=== PATIENT | male | born 1960 | race Caucasian/White ===

== ENCOUNTER → 2019-03-27 | Outpatient (CLI) | payer OTHER ==
[2019-03-27 15:44] LABS: HCT 46.7 % (39.0-53.0); HGB 15.9 gm/dL (13.0-17.5); MCH 30.7 pg (25.0-35.0); MCHC 34.2 g/dL (31.0-37.0); Mean Platelet Volume 7.1; Platelet Count 296 k/uL (150-450); RBC 5.19 m/uL (4.30-5.90); RDW 12.5 % (11.5-15.5); WBC 10.4 k/uL (3.8-10.6)
[2019-03-27 16:01] LABS: African American GFR (CKD) >90 (>60 ml/min/1.73 sqM); Blood Urea Nitrogen 13 mg/dL (9-20); Carbon Dioxide 29 mmol/L (22-30); Chloride 102 mmol/L (98-107); Potassium 4.1 mmol/L (3.5-5.1)
[2019-03-27 16:51] LABS: Anion Gap 9 mmol/L; Sodium 140 mmol/L (137-145)
== END | disposition home or self-care (01) ==
LOC: LABPAT 14:54
PROVIDERS: ATTEND Internal Medicine Cardiovascular Disease
DX: Z01.812 Encounter for preprocedural laboratory examination (principal); I25.5 Ischemic cardiomyopathy
CPT/HCPCS: 80051; 82565; 84520; 85027

== ENCOUNTER → 2021-12-02 | Outpatient (CLI) | payer OTHER ==
--- NOTE | 2021-12-02 10:15 | XR ---
EXAMINATION TYPE: XR lumbar spine 3 views DATE OF EXAM: 12/02/2021 Comparison: None Clinical History: 61-year-old male M46.1 SACROILIITIS, NOT ELSEWHERE CLASSIFIED Findings: A 1.1 cm density at the right mid abdomen could represent a renal stone or gallstone. Slight dextroco nvexed curvature mid lumbar spine. Small T12 ribs. Mild degenerative disc disease throughout with min imal disc space narrowing and mild endplate spondylosis. More moderate degenerative disc disease towa rds the left at L3-L4 due to the concavity. Vertebral body heights are preserved and alignment is ida ntained. Hypertrophic facet arthropathy mid to lower lumbar spine. At the scattered calcifications ab dominal aorta. There is suggestion of mild degenerative spurring at the SI joints. No significant subarticular scler osis or underlying erosions are seen. Impression: 1. Suggestion of mild degenerative spurring at the SI joints. No subarticular erosions or significant sclerosis is seen. 2. Mild multilevel degenerative disc disease. More moderate towards the left at L3-L4 secondary to a slight dextroconvex curvature. 3. Hypertrophic facet arthropathy mid to lower lumbar spine. 4. No vertebral compression collapse or malalignment. 5. A 1.1 cm calcification right mid abdomen could represent a renal calculus or gallstone.
== END | disposition home or self-care (01) ==
LOC: RADXRMAIN 09:08
PROVIDERS: ATTEND Physician Assistant Medical
DX: M51.36 Other intervertebral disc degeneration, lumbar region (principal); M47.816 Spondylosis without myelopathy or radiculopathy, lumbar region
CPT/HCPCS: 72100

== ENCOUNTER → 2021-12-02 | Outpatient (CLI) | payer OTHER ==
[2021-12-02 08:49] VITALS: BP 159/89; PULSE 74; RESP 16
--- NOTE | 2021-12-02 08:49 | P.PAINPG ---
PQRS Measure Charge Sheet Comment: HISTORY OF PRESENT ILLNESS: 61 yr old male as a referral from Dr. Baker presents today with severe and chronic LBP/ L Sacroiliitis secondary to DDD for evaluation. Pt states his pain level is currently 2/10 in intensity, constant, localized in the lower aspect of his lumbar spine where it meets his tailbone on the L side w radiation of sharp pain towards the L glutes and L inner thigh. Pain is provoked with sitting for periods of 30 min or more. Pain is alleviated with medications (Tylenol, Toradol), topicals, PT in 2005, home exercise regimen, repositioning and rest. PMH: HTN, Hyperlipidemia PSH: Cardiac Stents SH: Hx of tobacco use, No ETOH abuse, No illicit drug use FH: Non contributory All: See list Meds: See list REVIEW OF ORGAN SYSTEMS: CONSTITUTIONAL: No fevers or chills. No recent weight loss. NEUROLOGICAL: + numbness and tingling along the distal extremities. No seizure disorders or headaches. MUSCULOSKELETAL: + pain PSYCHIATRIC: Denies current depression or suicidal thoughts. Physical Examinations : Constitutional : Cooperative , not in acute distress . Neurologic : Cranial nerve II to XII intact. No focal neurological deficits. Psychiatric : alert & oriented x 3. Matching mood & appropriate affect. Judgment & insight intact. Musculoskeletal : Cervical Spine Motor strength in the deltoid and biceps: Normal right side. Normal Left side Motor strength biceps and the wrist extensors: Normal right side . Normal left side Motor strength in the triceps muscle: Normal right side. Normal left side Deep tendon reflexes: Normal at the biceps. Normal at Brachioradialis. Normal at triceps Vertebral body tenderness to deep palpation over Cervical facet loading test: positive b ilaterally Spurling test: positive bilaterally Neck distraction test: positive bilaterally Nataliia sign: positive bilaterally Lumbar spine Motor strength lower extremities ,thigh and legs 5/5 Right side , 5/5 Left side Deep tendon reflexes : Normal Knee Jerk. Normal Ankle Jerk Vertebral body tenderness over Lumbar facet Loading Test: positive Right / positive Left Range of motion of the lumbar spine Flexion 30 degrees, extension 10 degrees Straight Leg Raise test: Left/ Right positive at degree Doug test: positive right / positive left. Severe tenderness over the Sacroiliac joint on the Right / Left sides Gaenslen test: positive bilaterally Seated flexion test: positive bilaterally. Sacral spine : Severe tenderness over the Sacroiliac joint: right side / left side Range of motion: Flexion of the lumbar spine <60 degrees Range of motion: Extension of the lumbar spine <20 degrees Gaenslen's Test positive on L Doug test: positive right side / left side Thigh Thrust Test- L side + L Sacral Thrust Test Imaging: None on file Assessment/ Plan : L Sacroiliitis Recommendation of Lumbar x rays Re: M46.1 Recommendation of PT 3 times per week x 6 wks Dx M46.1. Pt may return to our clinic within 6 weeks for a re evaluation All questions answered. I have spent greater than 30 minutes on patient care today. Dr Booker was available by phone for the evaluation of this patient. The time was used to review the medical records including relevant urine studies and Prescription history (MAPs), review of the available imaging, evaluation and examination of the patient, coordination of care with the medical staff and if applicable referring physicians, as well as creation of the medical record Home Medications: Ambulatory Orders Atorvastatin [Lipitor] 20 mg PO DAILY 12/02/21 Metoprolol Succinate (ER) [Toprol Xl] 25 mg PO DAILY 12/02/21 lisinopriL [Prinivil] 10 mg PO DAILY 12/02/21 Controlled Substance Measures - Controlled Substance Measures Is patient prescribed a controlled substance at discharge?: No
== END ==
LOC: PNWHC3 08:04
PROVIDERS: ATTEND Specialist
DX: M54.16 Radiculopathy, lumbar region (principal); M46.1 Sacroiliitis, not elsewhere classified; I10 Essential (primary) hypertension; E78.5 Hyperlipidemia, unspecified
CPT/HCPCS: 99202

== ENCOUNTER → 2022-01-13 | Outpatient (CLI) | payer OTHER ==
[2022-01-13 08:24] VITALS: BP 145/78; PULSE 71; RESP 16; TEMP 98.6
--- NOTE | 2022-01-13 14:09 | P.PAINPG ---
PQRS Measure Charge Sheet Comment: A 61 yr old male with a history of severe and chronic low back pain secondary to lumbar degenerative disc diseases and lumbar spondylosis with facet arthropathy without myelopathy and Sacroiliitis presents today for L lower lumbar spine/ tailbone pain. Pain level is currently at 2/10 in intensity, constant, localized in the lower aspect of his lumbar spine, sharp in character when sitting w shooting towards BL hips, L>R. Pain is provoked as high as 7/10 w sitting for periods of 30 min or more. Pain is alleviated with chiropractic treatments in the past, kinesiology in the past, home stretching regimen, alternating heat & ice, hot epsom salt baths, medications (Tylenol OTC, Flexeril, Muscle Rub), repositioning and rest. Patient is currently on Tylenol OTC, Flexeril Patient denies any side effects of the medication(s), denies excessive drowsiness or sleepiness, denies suicidal ideation and reports that the current pain medication is helping to control the pain and improve activities of daily living. Patient denies any motor or sensory deficits. Patient denies any fever or night sweats, denies any change in the bowel movements or urination. Physical Examination: -Constitutional: Cooperative. Not in acute distress . - Neurologic: Cranial nerve II to XII intact. No focal neurological defi cits. - Psychatric: Alert & oriented x 3. Matching mood & appropriate affect. Judgment and insight intact. - Musculoskeletal: Cervical spine: Muscle bulk/ tone/ strength in the bilateral upper extremities normal Vertebral body tenderness to palpation over Spurling test positive Distraction test positive Facet loading test positive Thoracic spine Muscle bulk / tone/ strength in the bilateral paraspinal muscles normal Vertebral body tender to palpation over Facet loading test positive Lumbar spine: Motor bulk/ tone/ strength lower extremities , thigh and legs : 5/5 Deep tendon reflexes : Normal Knee Jerk. Normal Ankle Jerk . Vertebral body tenderness to palpation over L1, L2 Lumbar Facet Loading Test positive Straight Leg Raise: positive at 30 degrees right side/ left side Gaenslen's Test positive Sacral spine : Severe tenderness over the Sacroiliac joint: right side / left side Range of motion: Flexion of the lumbar spine <60 degrees Range of motion: Extension of the lumbar spine <20 degrees Gaenslen's Test positive on the L Doug test: positive right side / left side L Thigh Thrust Test Sacral Thrust Test +L Assessment and plan: Chronic low back pain secondary to lumbar degenerative disc disease , lumbar spondylosis with facet arthropathy without myelopathy, Sacroiliitis Recommendation of MRI without contrast of the lumbar spine re: M46.1 PT script renewed, 2-3 times per week x 6 wks re: M46.1. He may return to our office within 6 wks for a reevaluation. Risks, benefits of procedure discussed and pt verbalized understanding. Denies anticoagulant use or medical history of diabetes. All patient questions answered MAPS reviewed and it was appropriate. I have spent less than 30 minutes on patient care today. Dr Booker was available by phone for the evaluation of this patient. The time was used to review the medical records including relevant urine studies and Prescription history (MAPs), review of the available imaging, evaluation and examination of the patient, coordination of care with the medical staff and if applicable referring physicians, as well as creation of the medical record PQRS Narrative: Hx Alcohol Use (MH) No Home Medications: Ambulatory Orders Atorvastatin [Lipitor] 20 mg PO DAILY 12/02/21 Metoprolol Succinate (ER) [Toprol Xl] 25 mg PO DAILY 12/02/21 lisinopriL [Prinivil] 10 mg PO DAILY 12/02/21 Controlled Substance Measures - Controlled Substance Measures Is patient prescribed a controlled substance at discharge?: No
== END ==
LOC: PNWHC3 07:59
PROVIDERS: ATTEND Specialist
DX: M46.1 Sacroiliitis, not elsewhere classified (principal); M51.36 Other intervertebral disc degeneration, lumbar region; M47.816 Spondylosis without myelopathy or radiculopathy, lumbar region; G89.29 Other chronic pain; F17.200 Nicotine dependence, unspecified, uncomplicated
CPT/HCPCS: 99211

== ENCOUNTER → 2024-03-20 | Outpatient (CLI) | payer MEDICARE ==
[2024-03-20 07:59] LABS: African American GFR (CKD) >90 (>60 ml/min/1.73 sqM); Blood Urea Nitrogen 12 mg/dL (9-20); Non-African American GFR(CKD) 83 (>60 ml/min/1.73 sqM)
--- NOTE | 2024-03-20 13:37 | CT ---
EXAMINATION TYPE: CT ChestAbdPelvis w con DATE OF EXAM: 03/20/2024 9:11 AM COMPARISON: None. CLINICAL INDICATION: Male, 64 years old with history of Z72.0 TOBACCO USE R63.4 ABN WEIGHT LOSS, TECHNIQUE: CT imaging performed with sagittal coronal reformats. CT scan of the chest, abdomen and pe lvis is performed with Oral Contrast and with IV Contrast, patient injected with 100 mL of Isovue [address] DLP: 1418.6 mGycm, Automated exposure control for dose reduction was used. FINDINGS: CT Chest: LUNGS: The lungs are clear and free of infiltrate or atelectasis. No pulmonary nodule or mass is det ected. No pleural effusion or CT evidence of interstitial lung disease. MEDIASTINUM: Thoracic aorta is of normal caliber. The heart is not enlarged. No evidence for media stinal mass or adenopathy. HILAR STRUCTURES: No evidence for mass. No hilar adenopathy is appreciated. OTHER: No significant abnormality. CONTRAST CT ABDOMEN AND PELVIS FINDINGS: LIVER/GB: Nonobstructing nephrolithiasis. No space occupying hepatic lesion. Biliary tree is of aminata l caliber. PANCREAS: No inflammation. No distinct mass. SPLEEN: No splenic enlargement. No lesion seen. ADRENALS: No nodule. No thickening. KIDNEYS/BLADDER: No hydronephrosis. Nonobstructing 5 mm calculus lower pole right kidney. 4 mm calcu sobeida lower pole left kidney. Simple cyst lower pole right kidney measuring 4.2 cm. BOWEL: Normal appendix. Normal bowel caliber. No inflammation. Scattered diverticulosis greatest in the region of the sigmoid colon. There is wall thickening sigmoid colon likely related to poor diste ntion. No definite inflammatory process seen. GENITAL ORGANS: No gross abnormality. LYMPH NODES: No greater than 1cm abdominal or pelvic lymph nodes are appreciated. AORTA: No significant abnormality. OSSEOUS STRUCTURES: No significant abnormality is seen. OTHER: No significant additional abnormality is seen. IMPRESSION: 1. Uncomplicated cholelithiasis. 2. Nonobstructing nephrolithiasis. 3. Sigmoid diverticulosis with probable poor distention of the colon. [facility], , 03/20/2024 1:35 PM
== END | disposition home or self-care (01) ==
LOC: RADCTMAIN 07:07
PROVIDERS: ATTEND Family Medicine
DX: K80.20 Calculus of gallbladder without cholecystitis without obstruction (principal); N20.0 Calculus of kidney; K57.30 Diverticulosis of large intestine without perforation or abscess without bleeding; R63.4 Abnormal weight loss; Z72.0 Tobacco use
CPT/HCPCS: 82565; 84520; 71260; 74177; 36415; Q9967

== ENCOUNTER → 2024-04-01 | Day surgery (SDC) | payer MEDICARE, OTHER ==
[2024-03-29 08:44] VITALS: BMI 29.0
[~2024-04-01] MED LIST: LIDOCAINE 1% (10MG/ML) FOR IV START INTRADERMA PRN; PROPOFOL 10 MG/ML 20 ML VIAL IV ONE
[2024-04-01] MEDS: IV FLUID CONTINUATION 1,000 ML IV ONE (11:04)
[2024-04-01] MEDS: LACTATED RINGERS 1,000 ML IV SCH (11:16)
--- NOTE | 2024-04-01 11:58 | P.GSHP ---
History of Present Illness H&P Date: 04/01/24 Chief Complaint: Weight loss, screening colonoscopy Is a 64-year-old male prewho has had issues with weight loss. And intermittent abdominal pain. Patient presents today for EGD and screening colonoscopy. Past Medical History Past Medical History: Hyperlipidemia, Hypertension Additional Past Medical History / Comment(s): pt is a poor historian History of Any Multi-Drug Resistant Organisms: None Reported Past Surgical History: Heart Catheterization Additional Past Surgical History / Comment(s): heart cath 2019, colonoscopy Past Anesthesia/Blood Transfusion Reactions: No Reported Reaction Additional Past Anesthesia/Blood Transfusion Reaction / Comment(s): no hx general anesthesia or no hx blood transfusion Smoking Status: Current every day smoker - Past Family History Mother Family Medical History: No Reported History Medications and Allergies Home Medications Medication Instructions Recorded Confirmed Type Atorvastatin [Lipitor] 20 mg PO DAILY 12/02/21 04/01/24 History lisinopriL [Prinivil] 10 mg PO QAM 12/02/21 04/01/24 History Aspirin 81 mg PO HS 03/29/24 03/29/24 History Allergies Allergy/AdvReac Type Severity Reaction Status Date / Time No Known Allergies Allergy Verified 04/01/24 11:03 Surgical - Exam Vital Signs Pulse Resp BP Pulse Ox 78 16 148/75 97 04/01/24 11:08 04/01/24 11:08 04/01/24 11:08 04/01/24 11:08 - General well developed, well nourished, no distress - Eyes PERRL - ENT normal pinna - Neck no masses, no bruits - Respiratory normal expansion - Cardiovascular Rhythm: regular - Abdomen Abdomen: soft, non tender Assessment and Plan Assessment: Weight loss, abdominal pain. Will perform EGD and screening colonoscopy.
--- NOTE | 2024-04-01 12:48 | P.OP ---
Date of Procedure: 04/01/24 Preoperative Diagnosis: Weight loss Abdominal pain Description of Procedure: ate of Procedure: 04/01/24 Preoperative Diagnosis: Weight loss Screening colonoscopy Postoperative Diagnosis: Antral gastritis Esophagitis Sliding hiatal hernia Diverticulosis Procedure(s) Performed: EGD Colonoscopy Anesthesia: MAC Surgeon: Juma Wall Pathology: other (Antrum, esophagus) Condition: stable Disposition: PACU Description of Procedure: Patient was placed on the endoscopy table in the lateral position. He received IV sedation. The Gastroflux oropharynx passed in the esophagus and stomach. Scope was then placed through the pylorus. The first and second portion of the duodenum appeared normal. The scope was brought back to the antrum this appeared mildly Flaim. A biopsy performed. Scope was then retroflexed and the Mainer of the stomach appeared normal. There was a moderate-sized sliding hiatal hernia. The GE junction was at 37 cm. The distal esophagus appeared inflamed and a biopsy performed. The proximal esophagus appeared normal. The scope was withdrawn patient. Next digital rectal exams performed. This revealed no abnormalities. The flexible colonoscope was then placed patient anus passed throughout the entire colon. The ileocecal valve was visualized. The cecum, ascending and transverse colon appeared normal. In the descending sigmoid colon there is moderate diverticular changes. Scope was brought back to the rectum this appeared normal. Scope withdrawn for the patient. Additional CC's: Jennifer Baker
[2024-04-01 12:49] VITALS: BP 133/78; PULSE 60; RESP 16
== END | disposition home or self-care (01) ==
LOC: ORWHC2ENDO 10:21
PROVIDERS: ATTEND Surgery
DX: Z12.11 Encounter for screening for malignant neoplasm of colon (principal); K29.50 Unspecified chronic gastritis without bleeding; B96.81 Helicobacter pylori [H. pylori] as the cause of diseases classified elsewhere; K20.90 Esophagitis, unspecified without bleeding; K57.30 Diverticulosis of large intestine without perforation or abscess without bleeding; K44.9 Diaphragmatic hernia without obstruction or gangrene; E78.5 Hyperlipidemia, unspecified; I10 Essential (primary) hypertension; I25.10 Atherosclerotic heart disease of native coronary artery without angina pectoris; F17.210 Nicotine dependence, cigarettes, uncomplicated; Z79.82 Long term (current) use of aspirin; Z79.899 Other long term (current) drug therapy
CPT/HCPCS: 88305; 88342; 43239; J2704; G0121; 45378